=== PATIENT | male | born 1935 | race Caucasian/White ===

== ENCOUNTER 2017-10-04 10:40 | Emergency (ER) | payer MEDICARE, BC ==
[~2017-10-04] VITALS: Ht 179.1 cm; Wt 115.8 kg
[~2017-10-04 10:40] MED LIST: DICL50 PO; GABA300C3 PO; LISI2.5T3 PO; LORA-475 PO; OXYC-360 PO; RISP4TAB41 PO; SIMV20 PO; VENL75TA91 PO
[2017-10-04 10:49] VITALS: BP 156/84; PULSE 67; RESP 16; TEMP 98.6; O2SAT 95
[2017-10-04] MEDS ORDERED: PERC5TAB12 PO (11:07)
[2017-10-04] MEDS ORDERED: RISP4TAB2 PO (11:07)
[2017-10-04] MEDS ORDERED: ASPI-516 PO (11:07)
[2017-10-04] MEDS ORDERED: LORA2TAB7 PO (11:10)
[2017-10-04] MEDS ORDERED: GABA300C5 PO (11:10)
[2017-10-04] MEDS ORDERED: VENL75TA (11:10)
[2017-10-04] MEDS ORDERED: DOXY100C PO (11:17)
--- NOTE | 2017-10-04 11:18 | PD ---
HPI Chief Complaint: Skin Problem Time Seen by Provider: 10:55 Travel History International Travel<30 days: No Contact w/Intl Traveler<30days: No Traveled to known affect area: No History of Present Illness HPI Is 82-year-old male here with 2 skin tears to his left forearm. He reports he sustained a skin tear approximately one month ago while bandaging the area today sustained another skin tear when he was removing the bandage. He denies fever or chills. He reports the area has mild redness and small amount of yellowish drainage. Denies increased tenderness of the area. No fever or chills. Symptom severity is mild. PFSH Past Medical History Arthritis: Yes Blood Disorders: No Anxiety: Yes Depression: Yes Cancer: No Cardiovascular Problems: Yes (htn on meds) High Cholesterol: Yes Diminished Hearing: No Endocrine: No Gastrointestinal Disorders: No Genitourinary: No Hypertension: Yes Immune Disorder: No Implanted Vascular Access Dvce: Yes Musculoskeletal: Yes Neurologic: No Psychiatric: Yes Reproductive: No Respiratory: No Tetanus Vaccination: > 5 Years Influenza Vaccination: No Past Surgical History Joint Replacement: Yes (BILAT KNEE) Oral Surgery: Yes (T&A) Tonsillectomy: Yes Other Surgery: Yes (SPINE SURGERY) Social History Alcohol Use: No Tobacco Use: No Substance Use: No Allergies-Medications (Allergen,Severity, Reaction): Coded Allergies: No Known Allergies (Verified Adverse Reaction, Unknown, 10/04/17) Reported Meds & Prescriptions Reported Meds & Active Scripts Active Reported Percocet (Oxycodone-Acetaminophen) 5-325 mg Tab 1 Tab PO Q4H PRN Aspirin 81 Mg Chew 81 Mg PO WEEKLY Risperidone 4 Mg Tab 4 Mg PO HS Review of Systems Except as stated in HPI: all other systems reviewed are Neg General / Constitutional: No: Fever Physical Exam Narrative GENERAL: Alert and well-appearing 82-year-old male SKIN: Warm and dry. 2 skin tears to the dorsal aspect of the left forearm. One of the skin tears has mild amount of erythema. No induration or fluctuance HEAD: Normocephalic. EYES: No injection or drainage. NECK: Supple MUSCULOSKELETAL: No cyanosis, or edema. The skin noted above. She moves all joints freely. 2+ distal pulses. Data Data Last Documented VS Vital Signs Date Time Temp Pulse Resp B/P (MAP) Pulse Ox O2 Delivery O2 Flow Rate FiO2 10/04/17 10:49 98.6 67 16 156/84 (108) 95 MDM Medical Decision Making Medical Screen Exam Complete: Yes Emergency Medical Condition: Yes Differential Diagnosis Skin tear, abscess, cellulitis Narrative Course This is a and 82-year-old male with 2 skin tears to the left forearm. One of the skin tears has mild erythema and reported yellowish drainage. Patient will be treated with short dose of doxycycline. He was instructed to wash the area daily with soap and water and apply a nonstick dressing. Diagnosis Primary Impression: Skin tear of forearm without complication Qualified Codes: S51.812A - Laceration without foreign body of left forearm, initial encounter Additional Impression: Wound infection Referrals: Primary Care Physician Additional Instructions: Cleansed the area daily with soap and water. Apply a clean dry nonstick dressing Antibiotics as directed Scripts Doxycycline Hyclate (Doxycycline Hyclate) 100 Mg Cap 100 MG PO BID for Infection for 7 Days, #14 CAP 0 Refills Prov: Yuly Solorzano 10/04/17 Disposition: 01 DISCHARGE HOME Condition: Stable Yuly Solorzano Oct 04, 2017 11:18
== END 2017-10-04 11:31 | disposition home or self-care (01) ==
LOC: PHEFT 10:40
DX: S51.812A Laceration without foreign body of left forearm, initial encounter (principal); I10 Essential (primary) hypertension; E78.00 Pure hypercholesterolemia, unspecified; F41.9 Anxiety disorder, unspecified; F32.9 Major depressive disorder, single episode, unspecified; Z79.82 Long term (current) use of aspirin; Z79.899 Other long term (current) drug therapy
CPT/HCPCS: 99283

== ENCOUNTER 2018-07-23 09:26 | Inpatient (IN) ==
--- NOTE | 2018-07-23 09:54 | ED ---
HPI General Chief Complaint: Fall Stated Complaint: evac/fall Time Seen by Provider: 07/23/18 09:50 Source: patient Mode of arrival: EMS Limitations: no limitations History of Present Illness HPI Narrative: Per patient he lives at home with family, states that as he was walked in he tripped and fell forward landing on hands/form and knees, denies hitting his head, denies any loss of consciousness, denies any headache. per family at bedside he is on heavy narcotics from [place] for his chronic pain, and that is why he is falling so frequently. Patient has a past medical history of chronic pain, high cholesterol, anxiety depression, hypertension, bilateral knee replacements, spinal surgery. MD complaint: Reports fall Onset (ago): minute(s) Fall from: standing Fall witnessed: no Place fall occurred: home Loss of consciousness: none Prolonged down time: no Symptoms prior to fall: Reports none Context: Reports tripped/slipped Severity scale (1-10): 3 Quality: Reports aching Associated symptoms (after fall): Reports denies Related Data Home Medications Medication Instructions Recorded Confirmed lamotrigine 200 mg PO DAILY 03/26/18 07/23/18 lisinopril 5 mg PO DAILY 03/26/18 07/23/18 lorazepam 2 mg PO TID 03/26/18 07/23/18 oxycodone 5 mg PO BID 03/26/18 07/23/18 risperidone 2 mg PO DAILY 03/26/18 07/23/18 selenium sulfide 1 applic TOPICAL DAILY 03/26/18 07/23/18 simvastatin 40 mg PO HS 03/26/18 07/23/18 testosterone cypionate 200 mg IM Q2W 03/26/18 07/23/18 venlafaxine 75 mg PO TID 03/26/18 07/23/18 Previous Rx's Medication Instructions Recorded trazodone 100 mg PO HS PRN 7 Days #7 tab 07/26/18 Allergies Allergy/AdvReac Type Severity Reaction Status Date / Time No Known Allergies Allergy Verified 07/19/18 06:56 Review of Systems ROS: all other systems reviewed are negative PMFSH History History Provided By: Patient Medical History Medical History Anxiety (Acute) Chronic pain (Acute) Depression (Acute) HTN (hypertension) (Acute) High cholesterol (Acute) Surgical History Surgical History History of knee replacement (Acute) History of spinal surgery (Acute) Social History Social History Substance History: No History of Abuse Second Hand Smoke Exposure: No Smoking Status: Former smoker Tobacco Type: Cigarettes How Often Do You Have a Drink Containing Alcohol: Never Recent Travel in [facility] within the Last 8 Weeks: No Recent Out of Country Travel within the Last 8 Weeks: No Exam Narrative Exam Narrative: GENERAL: Well-nourished, well-developed patient in no apparent distress. SKIN: Warm and dry. Patient has abrasions to bilateral forearms proximally, without any actual lacerations, however the first layer abrasions bilaterally are noted. Patient also has contusions to bilateral knees HEAD: Atraumatic. Normocephalic. EYES: Pupils equal and round. No scleral icterus. No injection or drainage. ENT: No nasal bleeding or discharge. Mucous membranes pink and moist. NECK: Trachea midline. No JVD. CARDIOVASCULAR: Regular rate and rhythm. no rubs or gallops RESPIRATORY: No accessory muscle use. Clear to auscultation. Breath sounds equal bilaterally. GASTROINTESTINAL: Abdomen soft, non-tender, nondistended. No rebound or guarding MUSCULOSKELETAL: Extremities without clubbing, cyanosis, or edema. No obvious deformities. NEUROLOGICAL: Awake and alert. No obvious cranial nerve deficits. Motor grossly within normal limits. Five out of 5 muscle strength in the arms and legs. Normal speech. PSYCHIATRIC: Appropriate mood and affect; insight and judgment normal. Course Initial Documented Vital Signs Temperature 97.5 F L 07/23/18 09:42 Pulse Rate 88 07/23/18 09:42 Blood Pressure 147/63 H 07/23/18 09:42 Pulse Oximetry 97 07/23/18 09:42 Last Documented Vital Signs Temperature 98.2 F 07/26/18 08:00 Pulse Rate 65 07/26/18 08:00 Respiratory Rate 16 07/26/18 08:00 Blood Pressure 147/67 H 07/26/18 08:00 Pulse Oximetry 94 L 07/26/18 08:00 Medical Decision Making MDM Narrative Medical decision making narrative: Patient has a known history of chronic pain, [facility], according to the family whose plot he lives in the gas room, he is always "stoned" on his narcotic pain medications and he is not able to care for himself ambulate and this is why he has had so many multiple falls. Based on this information a stat physical therapy for placement will be ordered Diagnostic villarreal a UA on July 15 was negative for UTI Wrist x-rays were negative for any fractures Pelvis x-ray negative for any fracture or dislocation Chest x-ray negative for any rib fractures or pneumothorax Head CT negative for any intracranial hemorrhage or skull fracture Bilateral knee x-rays negative for any fracture or dislocations Elbow x-rays bilaterally negative for any fractures or dislocations Abrasions on bilateral forearms where clean irrigated, antibacterial ointment applied Telfa dressing applied an layer and then Kerlix roll used to hold it in place. Case management Medical Screen Exam Complete: Yes Emergency Medical Condition: Yes Lab Data Result diagrams: 07/25/18 05:15 07/25/18 05:15 Lab Results 07/23/18 07/23/18 07/23/18 Range/Units 14:10 14:10 15:33 CBC w Diff Auto diff final WBC 8.6 (4.0-11.0) th/mm3 RBC 3.94 L (4.50-5.90) mil/mm3 Hgb 12.5 L (13.0-17.0) gm/dL Hct 37.1 L (39.0-51.0) % MCV 94.2 (80.0-100.0) fL MCH 31.7 (27.0-34.0) pg MCHC 33.7 (32.0-36.0) % RDW 12.2 (11.6-17.2) % Plt Count 324 (150-450) th/mm3 MPV 6.7 L (7.0-11.0) fL Neut % (Auto) 82.9 H (16.0-70.0) % Lymph % (Auto) 7.1 L (9.0-44.0) % [place] % (Auto) 8.7 H (0.0-8.0) % Eos % (Auto) 0.3 (0.0-4.0) % Baso % (Auto) 1.0 (0.0-2.0) % Neut # (Auto) 7.2 (1.8-7.7) th/mm3 Lymph # (Auto) 0.6 L (1.0-4.8) th/mm3 [place] # (Auto) 0.7 (0.0-0.9) th/mm3 Eos # (Auto) 0.0 (0.0-0.4) th/mm3 Baso # (Auto) 0.1 (0.0-0.2) th/mm3 WBC Differential . Differential Comment . PT (9.8-11.6) sec INR Ratio Sodium (136-145) meq/L Potassium (3.5-5.1) meq/L Chloride (98-107) meq/L Carbon Dioxide (21.0-32.0) meq/L Anion Gap (5-15) meq/L BUN (7-18) mg/dL Creatinine (0.60-1.30) mg/dL Estimated GFR (>89) mL/min Random Glucose (74-106) mg/dL Calcium (8.5-10.1) mg/dL Magnesium (1.5-2.5) mg/dL Total Bilirubin (0.2-1.0) mg/dL AST (15-37) U/L ALT (12-78) U/L Alkaline Phosphatase (45-117) U/L Total Creatine Kinase (39-308) U/L CK-MB (CK-2) (0.5-3.6) ng/mL CK-MB (CK-2) % (0.0-4.0) % Troponin I (0.02-0.05) ng/mL B-Natriuretic Peptide (0-100) pg/mL Total Protein (6.4-8.2) g/dL Albumin (3.4-5.0) g/dL Urine Color Yellow (Yellw/Straw) Urine Clarity Clear (Clear) Urine pH 5.5 (5.0-8.5) Ur Specific [place] Greater/equal 1.030 (1.002-1.035) Urine Protein Trace (Neg-Trace) mg/dL Urine Glucose (UA) Negative (Negative) mg/dL Urine Ketones 80 or greater H (Negative) mg/dL Urine Occult Blood Trace (Negative) Urine Nitrate Negative (Negative) Urine Bilirubin Negative (Negative) Urine Ictotest Negative (Negative) Urine Urobilinogen 0.2 (Less than 2) mg/dL Ur Leukocyte Esterase Negative (Negative) Urine RBC 0-3 (0-3) /hpf Urine WBC 0-5 (0-5) /hpf Amorphous Sediment Rare H (None) /hpf Urine Bacteria Rare H (None) /hpf Urine Mucus Few H (Occasional) /lpf Micro UA Comment Culture not ind Ur Microscopic Review Microscopic reviewed Urine Culture Comments Culture not ind Urine Opiates Screen Neg (Neg) Ur Barbiturates Screen Neg (Neg) Ur Amphetamines Screen Neg (Neg) U Benzodiazepines Scrn Neg (Neg) Urine Cocaine Screen Neg (Neg) U Cannabinoids Screen Neg (Neg) Serum Alcohol (0-5) mg/dL 07/23/18 07/23/18 07/23/18 Range/Units 15:33 15:33 15:33 CBC w Diff WBC (4.0-11.0) th/mm3 RBC (4.50-5.90) mil/mm3 Hgb (13.0-17.0) gm/dL Hct (39.0-51.0) % MCV (80.0-100.0) fL MCH (27.0-34.0) pg MCHC (32.0-36.0) % RDW (11.6-17.2) % Plt Count (150-450) th/mm3 MPV (7.0-11.0) fL Neut % (Auto) (16.0-70.0) % Lymph % (Auto) (9.0-44.0) % [place] % (Auto) (0.0-8.0) % Eos % (Auto) (0.0-4.0) % Baso % (Auto) (0.0-2.0) % Neut # (Auto) (1.8-7.7) th/mm3 Lymph # (Auto) (1.0-4.8) th/mm3 [place] # (Auto) (0.0-0.9) th/mm3 Eos # (Auto) (0.0-0.4) th/mm3 Baso # (Auto) (0.0-0.2) th/mm3 WBC Differential Differential Comment PT (9.8-11.6) sec INR Ratio Sodium 138 (136-145) meq/L Potassium 4.3 (3.5-5.1) meq/L Chloride 103 (98-107) meq/L Carbon Dioxide 22.0 (21.0-32.0) meq/L Anion Gap 13 (5-15) meq/L BUN 19 H (7-18) mg/dL Creatinine 0.80 (0.60-1.30) mg/dL Estimated GFR Greater than 89 (>89) mL/min Random Glucose 77 (74-106) mg/dL Calcium 8.5 (8.5-10.1) mg/dL Magnesium (1.5-2.5) mg/dL Total Bilirubin 0.6 (0.2-1.0) mg/dL AST 45 H (15-37) U/L ALT 25 (12-78) U/L Alkaline Phosphatase 103 (45-117) U/L Total Creatine Kinase 2162 H (39-308) U/L CK-MB (CK-2) 9.3 H (0.5-3.6) ng/mL CK-MB (CK-2) % 0.4 (0.0-4.0) % Troponin I Less than 0.02 L (0.02-0.05) ng/mL B-Natriuretic Peptide 97 (0-100) pg/mL Total Protein 6.9 (6.4-8.2) g/dL Albumin 3.0 L (3.4-5.0) g/dL Urine Color (Yellw/Straw) Urine Clarity (Clear) Urine pH (5.0-8.5) Ur Specific [place] (1.002-1.035) Urine Protein (Neg-Trace) mg/dL Urine Glucose (UA) (Negative) mg/dL Urine Ketones (Negative) mg/dL Urine Occult Blood (Negative) Urine Nitrate (Negative) Urine Bilirubin (Negative) Urine Ictotest (Negative) Urine Urobilinogen (Less than 2) mg/dL Ur Leukocyte Esterase (Negative) Urine RBC (0-3) /hpf Urine WBC (0-5) /hpf Amorphous Sediment (None) /hpf Urine Bacteria (None) /hpf Urine Mucus (Occasional) /lpf Micro UA Comment Ur Microscopic Review Urine Culture Comments Urine Opiates Screen (Neg) Ur Barbiturates Screen (Neg) Ur Amphetamines Screen (Neg) U Benzodiazepines Scrn (Neg) Urine Cocaine Screen (Neg) U Cannabinoids Screen (Neg) Serum Alcohol Less than 3 (0-5) mg/dL 11/07/24/18 07/24/18 Range/Units 05:45 05:45 05:45 CBC w Diff Auto diff final WBC 5.3 (4.0-11.0) th/mm3 RBC 3.72 L (4.50-5.90) mil/mm3 Hgb 11.7 L (13.0-17.0) gm/dL Hct 35.0 L (39.0-51.0) % MCV 94.1 (80.0-100.0) fL MCH 31.5 (27.0-34.0) pg MCHC 33.5 (32.0-36.0) % RDW 12.0 (11.6-17.2) % Plt Count 321 (150-450) th/mm3 MPV 7.2 (7.0-11.0) fL Neut % (Auto) 76.9 H (16.0-70.0) % Lymph % (Auto) 12.0 (9.0-44.0) % [place] % (Auto) 9.1 H (0.0-8.0) % Eos % (Auto) 1.7 (0.0-4.0) % Baso % (Auto) 0.3 (0.0-2.0) % Neut # (Auto) 4.1 (1.8-7.7) th/mm3 Lymph # (Auto) 0.6 L (1.0-4.8) th/mm3 [place] # (Auto) 0.5 (0.0-0.9) th/mm3 Eos # (Auto) 0.1 (0.0-0.4) th/mm3 Baso # (Auto) 0.0 (0.0-0.2) th/mm3 WBC Differential . Differential Comment . PT 11.0 (9.8-11.6) sec INR 1.1 Ratio Sodium 140 (136-145) meq/L Potassium 4.0 (3.5-5.1) meq/L Chloride 106 (98-107) meq/L Carbon Dioxide 24.9 (21.0-32.0) meq/L Anion Gap 9 (5-15) meq/L BUN 13 (7-18) mg/dL Creatinine 0.74 (0.60-1.30) mg/dL Estimated GFR Greater than 89 (>89) mL/min Random Glucose 74 (74-106) mg/dL Calcium 8.2 L (8.5-10.1) mg/dL Magnesium (1.5-2.5) mg/dL Total Bilirubin (0.2-1.0) mg/dL AST (15-37) U/L ALT (12-78) U/L Alkaline Phosphatase (45-117) U/L Total Creatine Kinase 2153 H (39-308) U/L CK-MB (CK-2) 8.1 H (0.5-3.6) ng/mL CK-MB (CK-2) % 0.4 (0.0-4.0) % Troponin I (0.02-0.05) ng/mL B-Natriuretic Peptide (0-100) pg/mL Total Protein (6.4-8.2) g/dL Albumin (3.4-5.0) g/dL Urine Color (Yellw/Straw) Urine Clarity (Clear) Urine pH (5.0-8.5) Ur Specific [place] (1.002-1.035) Urine Protein (Neg-Trace) mg/dL Urine Glucose (UA) (Negative) mg/dL Urine Ketones (Negative) mg/dL Urine Occult Blood (Negative) Urine Nitrate (Negative) Urine Bilirubin (Negative) Urine Ictotest (Negative) Urine Urobilinogen (Less than 2) mg/dL Ur Leukocyte Esterase (Negative) Urine RBC (0-3) /hpf Urine WBC (0-5) /hpf Amorphous Sediment (None) /hpf Urine Bacteria (None) /hpf Urine Mucus (Occasional) /lpf Micro UA Comment Ur Microscopic Review Urine Culture Comments Urine Opiates Screen (Neg) Ur Barbiturates Screen (Neg) Ur Amphetamines Screen (Neg) U Benzodiazepines Scrn (Neg) Urine Cocaine Screen (Neg) U Cannabinoids Screen (Neg) Serum Alcohol (0-5) mg/dL 07/25/18 07/25/18 07/25/18 Range/Units 05:15 05:15 05:15 CBC w Diff WBC 5.0 (4.0-11.0) th/mm3 RBC 3.59 L (4.50-5.90) mil/mm3 Hgb 11.0 L (13.0-17.0) gm/dL Hct 34.6 L (39.0-51.0) % MCV 96.4 (80.0-100.0) fL MCH 30.7 (27.0-34.0) pg MCHC 31.9 L (32.0-36.0) % RDW 12.7 (11.6-17.2) % Plt Count 284 (150-450) th/mm3 MPV 7.4 (7.0-11.0) fL Neut % (Auto) (16.0-70.0) % Lymph % (Auto) (9.0-44.0) % [place] % (Auto) (0.0-8.0) % Eos % (Auto) (0.0-4.0) % Baso % (Auto) (0.0-2.0) % Neut # (Auto) (1.8-7.7) th/mm3 Lymph # (Auto) (1.0-4.8) th/mm3 [place] # (Auto) (0.0-0.9) th/mm3 Eos # (Auto) (0.0-0.4) th/mm3 Baso # (Auto) (0.0-0.2) th/mm3 WBC Differential Differential Comment PT (9.8-11.6) sec INR Ratio Sodium 142 (136-145) meq/L Potassium 3.7 (3.5-5.1) meq/L Chloride 108 H (98-107) meq/L Carbon Dioxide 25.2 (21.0-32.0) meq/L Anion Gap 9 (5-15) meq/L BUN 10 (7-18) mg/dL Creatinine 0.58 L (0.60-1.30) mg/dL Estimated GFR Greater than 89 (>89) mL/min Random Glucose 76 (74-106) mg/dL Calcium 8.0 L (8.5-10.1) mg/dL Magnesium 2.2 (1.5-2.5) mg/dL Total Bilirubin (0.2-1.0) mg/dL AST (15-37) U/L ALT (12-78) U/L Alkaline Phosphatase (45-117) U/L Total Creatine Kinase 981 H (39-308) U/L CK-MB (CK-2) 3.9 H (0.5-3.6) ng/mL CK-MB (CK-2) % 0.4 (0.0-4.0) % Troponin I (0.02-0.05) ng/mL B-Natriuretic Peptide (0-100) pg/mL Total Protein (6.4-8.2) g/dL Albumin (3.4-5.0) g/dL Urine Color (Yellw/Straw) Urine Clarity (Clear) Urine pH (5.0-8.5) Ur Specific [place] (1.002-1.035) Urine Protein (Neg-Trace) mg/dL Urine Glucose (UA) (Negative) mg/dL Urine Ketones (Negative) mg/dL Urine Occult Blood (Negative) Urine Nitrate (Negative) Urine Bilirubin (Negative) Urine Ictotest (Negative) Urine Urobilinogen (Less than 2) mg/dL Ur Leukocyte Esterase (Negative) Urine RBC (0-3) /hpf Urine WBC (0-5) /hpf Amorphous Sediment (None) /hpf Urine Bacteria (None) /hpf Urine Mucus (Occasional) /lpf Micro UA Comment Ur Microscopic Review Urine Culture Comments Urine Opiates Screen (Neg) Ur Barbiturates Screen (Neg) Ur Amphetamines Screen (Neg) U Benzodiazepines Scrn (Neg) Urine Cocaine Screen (Neg) U Cannabinoids Screen (Neg) Serum Alcohol (0-5) mg/dL 07/26/18 Range/Units 07:36 CBC w Diff WBC (4.0-11.0) th/mm3 RBC (4.50-5.90) mil/mm3 Hgb (13.0-17.0) gm/dL Hct (39.0-51.0) % MCV (80.0-100.0) fL MCH (27.0-34.0) pg MCHC (32.0-36.0) % RDW (11.6-17.2) % Plt Count (150-450) th/mm3 MPV (7.0-11.0) fL Neut % (Auto) (16.0-70.0) % Lymph % (Auto) (9.0-44.0) % [place] % (Auto) (0.0-8.0) % Eos % (Auto) (0.0-4.0) % Baso % (Auto) (0.0-2.0) % Neut # (Auto) (1.8-7.7) th/mm3 Lymph # (Auto) (1.0-4.8) th/mm3 [place] # (Auto) (0.0-0.9) th/mm3 Eos # (Auto) (0.0-0.4) th/mm3 Baso # (Auto) (0.0-0.2) th/mm3 WBC Differential Differential Comment PT (9.8-11.6) sec INR Ratio Sodium (136-145) meq/L Potassium (3.5-5.1) meq/L Chloride (98-107) meq/L Carbon Dioxide (21.0-32.0) meq/L Anion Gap (5-15) meq/L BUN (7-18) mg/dL Creatinine (0.60-1.30) mg/dL Estimated GFR (>89) mL/min Random Glucose (74-106) mg/dL Calcium (8.5-10.1) mg/dL Magnesium (1.5-2.5) mg/dL Total Bilirubin (0.2-1.0) mg/dL AST (15-37) U/L ALT (12-78) U/L Alkaline Phosphatase (45-117) U/L Total Creatine Kinase 613 H (39-308) U/L CK-MB (CK-2) 3.0 (0.5-3.6) ng/mL CK-MB (CK-2) % 0.5 (0.0-4.0) % Troponin I (0.02-0.05) ng/mL B-Natriuretic Peptide (0-100) pg/mL Total Protein (6.4-8.2) g/dL Albumin (3.4-5.0) g/dL Urine Color (Yellw/Straw) Urine Clarity (Clear) Urine pH (5.0-8.5) Ur Specific [place] (1.002-1.035) Urine Protein (Neg-Trace) mg/dL Urine Glucose (UA) (Negative) mg/dL Urine Ketones (Negative) mg/dL Urine Occult Blood (Negative) Urine Nitrate (Negative) Urine Bilirubin (Negative) Urine Ictotest (Negative) Urine Urobilinogen (Less than 2) mg/dL Ur Leukocyte Esterase (Negative) Urine RBC (0-3) /hpf Urine WBC (0-5) /hpf Amorphous Sediment (None) /hpf Urine Bacteria (None) /hpf Urine Mucus (Occasional) /lpf Micro UA Comment Ur Microscopic Review Urine Culture Comments Urine Opiates Screen (Neg) Ur Barbiturates Screen (Neg) Ur Amphetamines Screen (Neg) U Benzodiazepines Scrn (Neg) Urine Cocaine Screen (Neg) U Cannabinoids Screen (Neg) Serum Alcohol (0-5) mg/dL Imaging Data Radiologist's impression: Chest X-Ray 07/23/18 09:54 CONCLUSION: No acute disease Elbow X-Ray 07/23/18 09:54 CONCLUSION: No evidence of recent bony injury. Elbow X-Ray 07/23/18 09:54 CONCLUSION: No acute fracture of the left elbow identified. Head CT 07/23/18 09:54 CONCLUSION: No acute intracranial injury . Knee X-Ray 07/23/18 09:54 CONCLUSION: No acute bony injury Knee X-Ray 07/23/18 09:54 CONCLUSION: Post arthroplasty. No acute fracture. Pelvis X-Ray 07/23/18 09:54 CONCLUSION: No acute bony findings Wrist X-Ray 07/23/18 09:54 CONCLUSION: 1. Healing fracture at the base of the fifth metacarpal. There is exuberant bony callus and degenerative changes. 2. Advanced arthritic changes in the carpometacarpal joint at the base of the thumb. 3. No acute abnormality seen Discharge Plan Discharge Disposition Patient Disposition: 03 Discharge to SNF Discharge Condition Condition: Good Discharge Order Discharge Orders: Discharge Order (Routine); Ordered 07/26/18 Ordered By: Sylvain Carreon Discharge Details Anticipated Discharge Date: 07/26/18 Physicians Team ED Provider: Christian Adrian Primary Care Provider: Shara Adler Attending Provider: Sylvain Carreon Other Providers: Bishnu Pop,Agency Status ED Status: Left Department Discharge Information Discharge Date/Time: 07/23/18 17:29 Discharge Location: [facility]
--- NOTE | 2018-07-23 10:54 | CT ---
EXAM DATE: 07/23/2018 10:46 AM EST AGE/SEX: 83 years / Male INDICATIONS: Trauma. Fall. CLINICAL DATA: This is the patient's initial encounter. Patient reports that signs and symptoms have been present for 1 day and indicates a pain score of 0/10. MEDICAL/SURGICAL HISTORY: Hypertension. None. RADIATION DOSE: 60.21 CTDI (mGy) COMPARISON: [facility], CT HEAD W/O CONTRAST, 03/26/2018. . TECHNIQUE: CT of the head without contrast. Using automated exposure control and adjustment of the mA and/or kV according to patient size, radiation dose was kept as low as reasonably achievable to ob tain optimal diagnostic quality images. DICOM format image data is available electronically for revi ew and comparison. FINDINGS: Cerebrum: The ventricles are normal for age. No evidence of midline shift, mass lesion, hemorrhage or acute infarction. No extraaxial fluid collections are seen. Posterior Fossa: The cerebellum and brainstem are intact. The 4th ventricle is midline. The cerebe llopontine angle is unremarkable. Extracranial: The visualized portion of the orbits is intact. Near confluent opacification of the ri ght maxillary sinus is again noted. Skull: The calvaria is intact. No evidence of skull fracture. CONCLUSION: No acute intracranial injury . Electronically signed by: Clay Singletary MD 07/23/2018 10:52 AM EST
--- NOTE | 2018-07-23 11:03 | XR ---
EXAM DATE: 07/23/2018 10:35 AM EST AGE/SEX: 83 years / Male INDICATIONS: Chest discomfort; fall. CLINICAL DATA: This is the patient's initial encounter. Patient reports that signs and symptoms have been present for 1 day and indicates a pain score of 2/10. MEDICAL/SURGICAL HISTORY: Hypertension. Non-responsive. COMPARISON: [facility], RIBS LEFT MIN 3V W EXP CHEST, 07/15/2018. . FINDINGS: Stable oval calcific density overlying the lateral right upper lobe region. Minimal calcification viviana ng the diaphragmatic surface on the right. No evidence of infiltrate or effusion. Cardiac contours ar e unchanged. CONCLUSION: No acute disease Electronically signed by: Clay Singletary MD 07/23/2018 11:01 AM EST
--- NOTE | 2018-07-23 11:09 | XR ---
EXAM DATE: 07/23/2018 10:40 AM EST AGE/SEX: 83 years / Male INDICATIONS: Left knee pain; fall today. CLINICAL DATA: This is the patient's initial encounter. Patient reports that signs and symptoms have been present for 1 day and indicates a pain score of 5/10. MEDICAL/SURGICAL HISTORY: None. . Bilateral total knee replacement. COMPARISON: [facility], XR KNEE COMPLETE, LEFT, 09/09/2017. . FINDINGS: Total knee arthroplasty present. Hardware is intact. Alignment is anatomic. There is no evidence of f racture or joint effusion. CONCLUSION: No acute bony injury Electronically signed by: Clay Singletary MD 07/23/2018 11:08 AM EST
--- NOTE | 2018-07-23 11:09 | XR ---
EXAM DATE: 07/23/2018 10:38 AM EST AGE/SEX: 83 years / Male INDICATIONS: Right elbow laceration and pain. Fall today. CLINICAL DATA: This is the patient's initial encounter. Patient reports that signs and symptoms have been present for 1 day and indicates a pain score of 4/10. MEDICAL/SURGICAL HISTORY: None. None. COMPARISON: No prior exams available for comparison. FINDINGS: Bony structures are intact and in normal alignment. Joints are intact without dislocation or signifi cant arthropathy. Osseous density is normal. Soft tissues are unremarkable. No radiopaque foreign bodies seen. CONCLUSION: No evidence of recent bony injury. Electronically signed by: Clay Singletary MD 07/23/2018 11:07 AM EST
--- NOTE | 2018-07-23 11:10 | XR ---
EXAM DATE: 07/23/2018 10:41 AM EST AGE/SEX: 83 years / Male INDICATIONS: Right knee pain; fall today. CLINICAL DATA: This is the patient's initial encounter. Patient reports that signs and symptoms have been present for 1 day and indicates a pain score of 5/10. MEDICAL/SURGICAL HISTORY: None. None. COMPARISON: No prior exams available for comparison. FINDINGS: The patient is post right knee arthroplasty. Orthopedic hardware is in excellent position. There is n o evidence of failure complication. No acute fractures seen. Note is made of atherosclerotic plaquing within the distal superficial femoral and popliteal arteries . CONCLUSION: Post arthroplasty. No acute fracture. Electronically signed by: Remberto Garcias MD 07/23/2018 11:09 AM EST
--- NOTE | 2018-07-23 11:11 | XR ---
EXAM DATE: 07/23/2018 10:44 AM EST AGE/SEX: 83 years / Male INDICATIONS: Left wrist pain; fall today. CLINICAL DATA: This is the patient's initial encounter. Patient reports that signs and symptoms have been present for 1 day and indicates a pain score of 4/10. MEDICAL/SURGICAL HISTORY: None. None. COMPARISON: [facility]PO, HAND COMPLETE LEFT MIN 3V, 03/26/2018. . FINDINGS: The examination demonstrates a healing fracture involving the base of the fifth metacarpal. There are secondary degenerative changes. Note is also made of advanced arthritic changes in the carpal/metacarpal joint at the base of the reese mb. The remainder of the carpus appears intact. No acute fracture is seen. The distal radius and ulna are intact. CONCLUSION: 1. Healing fracture at the base of the fifth metacarpal. There is exuberant bony callus and degenera tive changes. 2. Advanced arthritic changes in the carpometacarpal joint at the base of the thumb. 3. No acute abnormality seen Electronically signed by: Remberto Garcias MD 07/23/2018 11:10 AM EST
--- NOTE | 2018-07-23 11:12 | XR ---
EXAM DATE: 07/23/2018 10:37 AM EST AGE/SEX: 83 years / Male INDICATIONS: Left elbow laceration and pain. Fall today. CLINICAL DATA: This is the patient's initial encounter. Patient reports that signs and symptoms have been present for 1 day and indicates a pain score of 4/10. MEDICAL/SURGICAL HISTORY: None. None. COMPARISON: [facility], ELBOW COMPLETE LEFT 4V, 03/26/2018. . FINDINGS: Bony structures are intact and in normal alignment. Joints are intact without dislocation or signifi cant arthropathy. Osseous density is normal. Soft tissues are unremarkable. No radiopaque foreign bodies seen. CONCLUSION: No acute fracture of the left elbow identified. Electronically signed by: Remberto Garcias MD 07/23/2018 11:11 AM EST
--- NOTE | 2018-07-23 11:19 | XR ---
EXAM DATE: 07/23/2018 10:42 AM EST AGE/SEX: 83 years / Male INDICATIONS: Pelvic pain. CLINICAL DATA: This is the patient's initial encounter. Patient reports that signs and symptoms have been present for 1 day and indicates a pain score of 5/10. MEDICAL/SURGICAL HISTORY: None. None. COMPARISON: No prior exams available for comparison. FINDINGS: Mild degenerative changes in the hips. No evidence of fracture, dislocation or bony destruction. Phle boliths in the left pelvis. CONCLUSION: No acute bony findings Electronically signed by: Clay Singletary MD 07/23/2018 11:18 AM EST
[2018-07-23 15:00] LABS: Clarity,Urine Clear (Clear); Color,Urine Yellow (Yellw/Straw); Glucose,Urine (UA) Negative (Negative); Leukocyte Esterase,Urine Negative (Negative); Nitrite,Urine Negative (Negative); PH,Urine 5.5 (5.0-8.5); Specific Gravity,Urine Greater/Equal 1.030 (1.002-1.035); Urobilinogen,Urine 0.2 mg/dL (Less than 2)
[2018-07-23 15:04] LABS: Bilirubin,Urine Negative (Negative); Ictotest,Urine Negative (Negative)
[2018-07-23 15:09] LABS: RBC,Urine 0-3 /hpf (0-3)
[2018-07-23 15:10] LABS: Amorphous Sediment,Urine Rare /hpf; Bacteria,Urine Rare /hpf; Mucus,Urine Few /lpf (Occasional); WBC,Urine 0-5 /hpf (0-5)
[2018-07-23 15:18] LABS: Amphetamine Screen,Urine Neg (Neg); Barbiturate Screen,Urine Neg (Neg)
[2018-07-23 15:20] LABS: Cannabinoid Screen,Urine Neg (Neg)
[2018-07-23 15:22] LABS: Cocaine Screen,Urine Neg (Neg)
[2018-07-23 15:41] LABS: Baso # (Auto) 0.1 th/mm3 (0.0-0.2); Eos % (Auto) 0.3 % (0.0-4.0); Hematocrit 37.1 % (39.0-51.0); Hemoglobin 12.5 gm/dL (13.0-17.0); Lymph # (Auto) 0.6 th/mm3 (1.0-4.8); Lymph % (Auto) 7.1 % (9.0-44.0); Mean Corpuscular HGB Conc 33.7 % (32.0-36.0); Mean Corpuscular Hemoglobin 31.7 pg (27.0-34.0); Mean Corpuscular Volume 94.2 fL (80.0-100.0); Mean Platelet Volume 6.7 fL (7.0-11.0); Mono # (Auto) 0.7 th/mm3 (0.0-0.9); Mono % (Auto) 8.7 % (0.0-8.0); Neut # (Auto) 7.2 th/mm3 (1.8-7.7); Neut % (Auto) 82.9 % (16.0-70.0); Platelet Count 324 th/mm3 (150-450); Red Blood Count 3.94 mil/mm3 (4.50-5.90); Red Cell Distribution Width 12.2 % (11.6-17.2); White Blood Count 8.6 th/mm3 (4.0-11.0)
[2018-07-23 15:43] LABS: Opiate Screen,Urine Neg (Neg)
[2018-07-23 15:49] LABS: Chloride 103 meq/L (98-107); Potassium 4.3 meq/L (3.5-5.1); Sodium 138 meq/L (136-145)
[2018-07-23 15:52] LABS: Calcium 8.5 mg/dL (8.5-10.1)
[2018-07-23 15:53] LABS: Anion Gap 13 meq/L (5-15); Blood Urea Nitrogen 19 mg/dL (7-18); Glucose,Random 77 mg/dL (74-106)
[2018-07-23 15:56] LABS: Alanine Aminotransferase 25 U/L (12-78); Aspartate Aminotransferase 45 U/L (15-37); Glomerular Filtration Rate Greater Than 89 mL/min (>89)
[2018-07-23 15:57] LABS: Total Protein 6.9 g/dL (6.4-8.2)
[2018-07-23 15:59] LABS: Alkaline Phosphatase 103 U/L (45-117)
[2018-07-23] MEDS ORDERED: Acetaminophen 325 MG Tablet PO PRN (16:30)
[2018-07-23] MEDS ORDERED: Bisacodyl 10 MG Supp RECTAL PRN (16:30)
[2018-07-23 16:33] LABS: CKMB Percent 0.4 % (0.0-4.0); Creatine Kinase MB 9.3 ng/mL (0.5-3.6)
--- NOTE | 2018-07-23 17:00 | P.HPIM ---
History of Present Illness Primary Care Physician: Shara Adler MD Patient is a 83 year old male and [place] patient who presents to the ED following mechanical fall at home. history provided by son pradeep and tailer in of [address] [employer]. As per family patient has been having multiple falls over a period of months and fell 1 day prior to admission where the dire dept was called to help him up. On day of presentation patient found on floor face down by family ater another presumed mechanical fall. patient denied prodromal symptoms such as chest pain, palpitations, sob, dizziness. Patient reports that he had bilateral knee replacements and is supposed to use a walker but family says he doesnt use it and when he does isnt using it correctly. Family also brought up concerns regarding pain medication use. Patient has chronic pain from the knee and uses oxycodone but its prescribed 5mg BID but he uses it more than that they claim. Patient also uses risperdal, ativan and anti- depressant medication which family believes patient may be taking more than prescribed. Patient denies this claim. Family reports that patient follows with the [place] [phone] ( Dr. Flores [facility]) and Also a MD in [place] ( Dr. Rubio). In ED patient received imaging which returned unremarkable. Patient was small lacerations over her elbows and arms which are dressed and stable. Lab work reviewed and no significant abnormality. Hemoglobin stable. CT head negative for intracranial pathology. Diagnosis (1) Fall (on) (from) other stairs and steps, initial encounter: (2) Substance addiction: (3) Chronic knee pain after total replacement of both knee joints: (4) Hypertension: (5) High cholesterol: (6) Depression: (7) Anxiety: Review of Systems Review of Systems: all other systems reviewed are negative [facility] Medical History Medical History Anxiety (Acute) Chronic pain (Acute) Depression (Acute) HTN (hypertension) (Acute) High cholesterol (Acute) Surgical History Surgical History History of knee replacement (Acute) History of spinal surgery (Acute) Social History Social History Substance History: No History of Abuse Second Hand Smoke Exposure: No Smoking Status: Former smoker Tobacco Type: Cigarettes How Often Do You Have a Drink Containing Alcohol: Never Recent Travel in [place] within the Last 8 Weeks: No Recent Out of Country Travel within the Last 8 Weeks: No Immunization History Tetanus Immunization: <5 Years Medications and Allergies Allergies Allergy/AdvReac Type Severity Reaction Status Date / Time No Known Allergies Allergy Verified 07/19/18 06:56 Home Medications Medication Instructions Recorded Confirmed Type lamotrigine 200 mg PO DAILY 03/26/18 07/23/18 History lisinopril 5 mg PO DAILY 03/26/18 07/23/18 History lorazepam 2 mg PO TID 03/26/18 07/23/18 History oxycodone 5 mg PO BID 03/26/18 07/23/18 History risperidone 2 mg PO DAILY 03/26/18 07/23/18 History risperidone 4 mg PO HS 03/26/18 07/23/18 History selenium sulfide 1 applic TOPICAL DAILY 03/26/18 07/23/18 History simvastatin 40 mg PO HS 03/26/18 07/23/18 History testosterone cypionate 200 mg IM Q2W 03/26/18 07/23/18 History venlafaxine 75 mg PO TID 03/26/18 07/23/18 History Active Medications: Active Medications Acetaminophen (Tylenol) 650 mg PO Q4H PRN PRN Reason: Temp > 100.4 Al Hydroxide/Mg Hydroxide (Milk Of Magnashley Liq) 30 ml PO Q12H PRN PRN Reason: Mild Constipation Bisacodyl (Dulcolax Supp) 10 mg RECTAL DAILY PRN PRN Reason: SEVERE CONSITIPATION Enoxaparin Sodium (Lovenox Inj) 40 mg SQ Q24H [facility] Sodium Chloride (Ns Inj) 1,000 mls @ 100 mls/hr IV.CONT .Q10H [facility] Ondansetron HCl (Zofran Inj) 4 mg IV.PUSH Q6H PRN PRN Reason: NAUSEA OR VOMITING Senna/Docusate Sodium (Gia-Colace) 1 tab PO BID [facility] Sennosides (Senokot) 17.2 mg PO Q12H PRN PRN Reason: Moderate Constipation Sodium Chloride (Ns Flush) 2 ml IV.FLUSH PRN PRN PRN Reason: FLUSH AFTER USING IV ACCESS Sodium Chloride (Ns Flush) 2 ml IV.FLUSH BID [facility] Physical Exam Vital signs: Last Vital Signs Temp 97.5 F L 07/23/18 09:42 Pulse 86 07/23/18 14:04 Resp 17 07/23/18 14:04 BP 131/64 07/23/18 14:04 Pulse Ox 94 L 07/23/18 14:04 Intake & Output 07/21/18 07/22/18 07/23/18 07/24/18 06:59 06:59 06:59 06:59 Weight 113 kg General: No acute distress, conversational HEENT: Facial laceration over anterior nares. EOMI, PERRLA. Cardiovascular: Systolic murmur noted. Respiratory: Clear to auscultation Gastrointestinal: Soft, nontender, nondistended, no guarding or rebound. No bruising noted in flank Extremity: No calf tenderness, no edema Neurology: Sensation intact upper and lower extremity. Power 5/5 throughout. No facial droop. No slurred speech. Patient AAO x3 Results Labs CBC & Chem 7: 07/23/18 15:33 07/23/18 15:33 Imaging Impressions Chest X-Ray 07/23/18 09:54 CONCLUSION: No acute disease Elbow X-Ray 07/23/18 09:54 CONCLUSION: No evidence of recent bony injury. Elbow X-Ray 07/23/18 09:54 CONCLUSION: No acute fracture of the left elbow identified. Head CT 07/23/18 09:54 CONCLUSION: No acute intracranial injury . Knee X-Ray 07/23/18 09:54 CONCLUSION: No acute bony injury Knee X-Ray 07/23/18 09:54 CONCLUSION: Post arthroplasty. No acute fracture. Pelvis X-Ray 07/23/18 09:54 CONCLUSION: No acute bony findings Wrist X-Ray 07/23/18 09:54 CONCLUSION: 1. Healing fracture at the base of the fifth metacarpal. There is exuberant bony callus and degenerative changes. 2. Advanced arthritic changes in the carpometacarpal joint at the base of the thumb. 3. No acute abnormality seen Caprini VTE Risk Assessment Caprini VTE Risk Assessment: No/Low Risk (score <= 1) Caprini Risk Assessment Model: Point Value = 1 Point Value = 2 Point Value = 3 Point Value = 5 Age 41-60 Minor surgery BMI > 25 kg/m2 Swollen legs Varicose veins or History of unexplained or recurrent spontaneous Oral contraceptives or hormone replacement Sepsis (< 1 month) Serious lung disease, including pneumonia (< 1 month) Abnormal pulmonary function Acute myocardial infarction Congestive heart failure (< 1 month) History of inflammatory bowel disease Medical patient at bed rest Age 61-74 Arthroscopic surgery Major open surgery (> 45 min) Laparoscopic surgery (> 45 min) Malignancy Confined to bed (> 72 hours) Immobilizing plaster cast Central venous access Age >= 75 History of VTE Family history of VTE Factor V Leiden Prothrombin [id number] Lupus anticoagulant Anticardiolipin antibodies Elevated serum homocysteine Heparin-induced thrombocytopenia Other congenital or acquired thrombophilia Stroke (< 1 month) Elective arthroplasty Hip, pelvis, or leg fracture Acute spinal cord injury (< 1 month) Prophylaxis Regimen: Total Risk Factor Score Risk Level Prophylaxis Regimen 0-1 Low Early ambulation 2 Moderate Order ONE of the following: *Sequential Compression Device (SCD) *Heparin 5000 units SQ BID 3-4 Higher Order ONE of the following medications: *Heparin 5000 units SQ TID *Enoxaparin/Lovenox 40 mg SQ daily (WT < 150 kg, CrCl > 30 mL/min) *Enoxaparin/Lovenox 30 mg SQ daily (WT < 150 kg, CrCl > 10-29 mL/min) *Enoxaparin/Lovenox 30 mg SQ BID (WT < 150 kg, CrCl > 30 mL/min) AND/OR *Sequential Compression Device (SCD) 5 or more Highest Order ONE of the following medications: *Heparin 5000 units SQ TID (Preferred with Epidurals) *Enoxaparin/Lovenox 40 mg SQ daily (WT < 150 kg, CrCl > 30 mL/min) *Enoxaparin/Lovenox 30 mg SQ daily (WT < 150 kg, CrCl > 10-29 mL/min) *Enoxaparin/Lovenox 30 mg SQ BID (WT < 150 kg, CrCl > 30 mL/min) AND *Sequential Compression Device (SCD) Assessment and Plan (1) Fall (on) (from) other stairs and steps, initial encounter: Code(s): W10.8XXA - Fall (on) (from) other stairs and steps, initial encounter Status: Acute (2) Substance addiction: Code(s): F19.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, uncomplicated Status: Acute (3) Chronic knee pain after total replacement of both knee joints: Code(s): M25.561 - Pain in right knee; M25.562 - Pain in left knee; G89.29 - Other chronic pain; Z96.653 - Presence of artificial knee joint, bilateral Status: Acute (4) Hypertension: Code(s): I10 - Essential (primary) hypertension Status: Acute (5) High cholesterol: Code(s): E78.00 - Pure hypercholesterolemia, unspecified Status: Acute (6) Depression: Code(s): F32.9 - Major depressive disorder, single episode, unspecified Status: Acute (7) Anxiety: Code(s): F41.9 - Anxiety disorder, unspecified Status: Acute Plan Muscular skeletal/orthopedic: Fall, history of bilateral knee replacement Extensive imaging obtained. No evidence of acute fracture at this time. Physical therapy evaluation -Ibuprofen 600 mg twice daily as needed for pain, oxycodone 5 mg twice daily as needed breakthrough Psychiatry: Substance misuse of opioids, anxiety, depression, chronic pain, mood disorder Family concerned that patient has been misusing his prescription for opioid medication which is resulting in oversedation and falls. Explained to patient that medication compliance is la to recovery and decrease auscultations. Will begin process of slowly titrating down medications with plan outpatient follow-up with primary medical doctor at [facility] Continue venlafaxine 75 mg p.o. 3 times daily Continue lamotrigine 200 mg twice daily Continue Ativan 2 mg twice daily for anxiety - Trazadone 100mg qHS due to low risk for abuse in patients with substance abuse concerns. - medication confirmation recieved from [facility] outpatient. Collected - risperdal 2mg qD and HOLDING risperdal 4mgQHS written for sleep disturbance as per patient/family. use trazadone. Nephrology: Rhabdomyolysis Continue aggressive IV fluid hydration A.m. CPK level Cardiology: Hypertension, hyperlipidemia Continue lisinopril 5 mg daily 2D echo to evaluate for valvular pathology leading to fall Telemetry monitoring CODE STATUS: Full code DVT prophylaxis Diet: Cardiac Disposition: Medical service Plan discussed in part with patient family at bedside.
[2018-07-23] MEDS: Sod Chloride 0.9% Inj 1,000 ML IV.CONT SCH (18:00)
[2018-07-23] MEDS: Enoxaparin Inj 40 MG/0.4 ML Syringe SQ SCH (18:08)
[2018-07-23] MEDS ORDERED: Lisinopril 5 MG Tablet PO SCH (19:00)
[2018-07-23] MEDS: Senna/Docusate Sodium 8.6/50 MG Tablet PO SCH (22:12)
[2018-07-23] MEDS: traZODone 100 MG Tablet PO PRN (22:12)
[2018-07-23] MEDS: lamoTRIgine 100 MG Tablet PO SCH (22:12)
[2018-07-23] MEDS: Lisinopril 5 MG Tablet PO SCH (22:20)
[2018-07-24] MEDS: Sod Chloride 0.9% Inj 1,000 ML IV.CONT SCH ×3 (06:10→22:24)
[2018-07-24 06:52] LABS: Baso % (Auto) 0.3 % (0.0-2.0); Eos # (Auto) 0.1 th/mm3 (0.0-0.4); Eos % (Auto) 1.7 % (0.0-4.0); Hemoglobin 11.7 gm/dL (13.0-17.0); Lymph # (Auto) 0.6 th/mm3 (1.0-4.8); Mean Corpuscular HGB Conc 33.5 % (32.0-36.0); Mean Corpuscular Hemoglobin 31.5 pg (27.0-34.0); Mean Corpuscular Volume 94.1 fL (80.0-100.0); Mean Platelet Volume 7.2 fL (7.0-11.0); Mono # (Auto) 0.5 th/mm3 (0.0-0.9); Mono % (Auto) 9.1 % (0.0-8.0); Neut # (Auto) 4.1 th/mm3 (1.8-7.7); Neut % (Auto) 76.9 % (16.0-70.0); Platelet Count 321 th/mm3 (150-450); Red Blood Count 3.72 mil/mm3 (4.50-5.90); White Blood Count 5.3 th/mm3 (4.0-11.0)
[2018-07-24 07:02] LABS: INR 1.1 Ratio
[2018-07-24 07:04] LABS: Chloride 106 meq/L (98-107); Sodium 140 meq/L (136-145)
[2018-07-24 07:09] LABS: Anion Gap 9 meq/L (5-15); Calcium 8.2 mg/dL (8.5-10.1); Carbon Dioxide 24.9 meq/L (21.0-32.0); Glucose,Random 74 mg/dL (74-106)
[2018-07-24 07:10] LABS: Blood Urea Nitrogen 13 mg/dL (7-18)
[2018-07-24 07:13] LABS: Glomerular Filtration Rate Greater Than 89 mL/min (>89)
[2018-07-24 07:28] LABS: Creatine Kinase 2153 U/L (39-308)
[2018-07-24 07:48] LABS: CKMB Percent 0.4 % (0.0-4.0); Creatine Kinase MB 8.1 ng/mL (0.5-3.6)
--- NOTE | 2018-07-24 09:34 | P.PNIM ---
Subjective Interval history: Patient seen and evaluated this morning at bedside. Patient denies headache, blurry vision, hearing changes, palpitations, chest pain, shortness of breath, nausea, vomiting, diarrhea, tactile or auditory hallucinations, diarrhea, or acute complaints. Patient denies feeling weak this morning he says he had a good night overnight. EMR reviewed and patient did not receive any oxycodone overnight Physical Exam Vital signs: Last Vital Signs Temp 98.2 F 07/24/18 08:00 Pulse 74 07/24/18 08:00 Resp 21 07/24/18 08:00 BP 138/68 07/24/18 08:00 Pulse Ox 95 07/24/18 08:00 Intake & Output 07/22/18 07/23/18 07/24/18 07/25/18 06:59 06:59 06:59 06:59 Intake Total 1060 / 1060 240 / 240 Output Total 500 / 500 200 / 200 Balance 560 / 560 40 / 40 Weight 108.4 kg HEENT: EOMI, PERRLA Cardiovascular: S1/S2. Systolic murmur Respiratory: Clear to auscultation anteriorly and posteriorly Gastrointestinal: Soft, nontender, nontender, no guarding or rebound appreciated. Neurology: Power 4/5 left upper and lower extremity, power 5/5 right upper and lower extremity, sensation intact bilaterally upper and lower extremity, no facial droop, no slurred speech. Extremity 2+ radial pulse upper chimney, no lower extremity edema, no calf tenderness Results Labs CBC & Chem 7: 07/24/18 05:45 07/24/18 05:45 Imaging Imaging: Impressions Chest X-Ray 07/23/18 09:54 CONCLUSION: No acute disease Elbow X-Ray 07/23/18 09:54 CONCLUSION: No evidence of recent bony injury. Elbow X-Ray 07/23/18 09:54 CONCLUSION: No acute fracture of the left elbow identified. Head CT 07/23/18 09:54 CONCLUSION: No acute intracranial injury . Knee X-Ray 07/23/18 09:54 CONCLUSION: No acute bony injury Knee X-Ray 07/23/18 09:54 CONCLUSION: Post arthroplasty. No acute fracture. Pelvis X-Ray 07/23/18 09:54 CONCLUSION: No acute bony findings Wrist X-Ray 07/23/18 09:54 CONCLUSION: 1. Healing fracture at the base of the fifth metacarpal. There is exuberant bony callus and degenerative changes. 2. Advanced arthritic changes in the carpometacarpal joint at the base of the thumb. 3. No acute abnormality seen Assessment and Plan (1) Fall (on) (from) other stairs and steps, initial encounter: Code(s): W10.8XXA - Fall (on) (from) other stairs and steps, initial encounter Status: Acute (2) Substance addiction: Code(s): F19.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, uncomplicated Status: Acute (3) Chronic knee pain after total replacement of both knee joints: Code(s): M25.561 - Pain in right knee; M25.562 - Pain in left knee; G89.29 - Other chronic pain; Z96.653 - Presence of artificial knee joint, bilateral Status: Acute (4) Hypertension: Code(s): I10 - Essential (primary) hypertension Status: Acute (5) High cholesterol: Code(s): E78.00 - Pure hypercholesterolemia, unspecified Status: Acute (6) Depression: Code(s): F32.9 - Major depressive disorder, single episode, unspecified Status: Acute (7) Anxiety: Code(s): F41.9 - Anxiety disorder, unspecified Status: Acute Plan Muscular skeletal/orthopedic: Fall, history of bilateral knee replacement Extensive imaging obtained. No evidence of acute fracture at this time. Physical therapy evaluation completed. -Ibuprofen 600 mg twice daily as needed for pain, oxycodone 5 mg twice daily as needed breakthrough Psychiatry: Substance misuse of opioids, anxiety, depression, chronic pain, mood disorder Family concerned that patient has been misusing his prescription for opioid medication which is resulting in oversedation and falls. Continue venlafaxine 75 mg p.o. 3 times daily Continue lamotrigine 200 mg twice daily Continue Ativan 2 mg twice daily for anxiety - Trazadone 100mg qHS due to low risk for abuse in patients with substance abuse concerns. - medication confirmation recieved from [facility] outpatient. Collected - risperdal 2mg qD and HOLDING risperdal 4mgQHS written for sleep disturbance as per patient/family. use trazadone. Nephrology: Rhabdomyolysis Continue aggressive IV fluid hydration. Normal saline 150cc/hr A.m. CPK level Cardiology: Hypertension, hyperlipidemia Continue lisinopril 5 mg daily 2D echo to evaluate for valvular pathology leading to fall Telemetry monitoring CODE STATUS: Full code DVT prophylaxis Diet: Cardiac Disposition: Medical service Progress Note: Quality VTE Deep Vein Thrombosis/Pulmonary Embolism Present on Admission: No
[2018-07-24] MEDS: Senna/Docusate Sodium 8.6/50 MG Tablet PO SCH ×2 (10:14→22:24)
[2018-07-24] MEDS: Lisinopril 5 MG Tablet PO SCH (10:14)
[2018-07-24] MEDS: lamoTRIgine 100 MG Tablet PO SCH ×2 (10:15→22:24)
[2018-07-24] MEDS: Venlafaxine XR 75 MG Capsule PO SCH (10:15)
--- NOTE | 2018-07-24 10:42 | ECHRPT ---
Indication: SYNCOPE CONCLUSIONS Normal left ventricular size. Moderately dilated left ventricle. Wall thickness is measured at the u pper limits of normal. The left ventricular systolic function is normal with an estimated ejection fraction in t he range of 60-65%. No definite regional wall motion abnormalities are present. [id number] mitral valve regurgitation. Aortic valve sclerosis is present. The aortic valve is not well visualized. A mean transvalvular aor tic gradient of 31 mm Hg suggests possible moderate aortic stenosis. BP: / HR: Rhythm: Sinus MEASUREMENTS (Male / Female) Normal Values Technical Quality:Very technically difficult study DOPPLER AV Peak Velocity 368.0 cm/s AV Peak Gradient 54.2 mmHg AV Mean Gradient 31.0 mmHg AV Velocity Time Integral 79.4 cm LVOT Peak Velocity 97.8 cm/s LVOT Peak Gradient 3.8 mmHg LVOT Velocity Time Integral 21.5 cm Mitral E Point Velocity 93.3 cm/s Mitral A Point Velocity 102.0 cm/s Mitral E to A Ratio 0.9 LV E' Lateral Velocity 9.3 cm/s Mitral E to LV E' Lateral Ratio 10.1 LV E' Septal Velocity 5.9 cm/s Mitral E to LV E' Septal Ratio 15.9 FINDINGS LEFT VENTRICLE Normal left ventricular size. Moderately dilated left ventricle. Wall thickness is measured at the u pper limits of normal. The left ventricular systolic function is normal with an estimated ejection fraction in t he range of 60-65%. No definite regional wall motion abnormalities are present. RIGHT VENTRICLE Normal right ventricular size and systolic function. LEFT ATRIUM The left atrial size is normal. RIGHT ATRIUM The right atrial size is normal. ATRIAL SEPTUM No atrial level shunt is demonstrated by color flow Doppler interrogation. AORTA The aortic root and proximal ascending aorta are not well visualized. MITRAL VALVE [id number] mitral valve regurgitation. AORTIC VALVE Aortic valve sclerosis is present. The aortic valve is not well visualized. A mean transvalvular aor tic gradient of 31 mm Hg suggests possible moderate aortic stenosis. TRICUSPID VALVE Structurally normal tricuspid valve. No tricuspid valve stenosis or regurgitation. PULMONARY VALVE The pulmonary valve is not well visualized. VESSELS The inferior vena cava was not well visualized. PERICARDIUM No pericardial effusion. Onesimo Hernandez MD (Electronically Signed) Final Date:24 July 2018 10:41
--- NOTE | 2018-07-24 12:15 | ECG ---
Date Performed: 07/23/2018 Time Performed: 14:28:02 PTAGE: 83 years EKG: Sinus rhythm NONSPECIFIC T-WAVE ABNORMALITY BORDERLINE ECG Since the PREVIOUS TRACING , no significant change noted PREVIOUS TRACIN07/19/2018 07.38 DOCTOR: Hua Zelaya Interpretating Date/Time 07/24/2018 12:13:38
[2018-07-24] MEDS: Enoxaparin Inj 40 MG/0.4 ML Syringe SQ SCH (18:52)
[2018-07-25 06:08] LABS: Hematocrit 34.6 % (39.0-51.0); Mean Corpuscular HGB Conc 31.9 % (32.0-36.0); Mean Corpuscular Hemoglobin 30.7 pg (27.0-34.0); Mean Corpuscular Volume 96.4 fL (80.0-100.0); Mean Platelet Volume 7.4 fL (7.0-11.0); Platelet Count 284 th/mm3 (150-450); Red Blood Count 3.59 mil/mm3 (4.50-5.90); Red Cell Distribution Width 12.7 % (11.6-17.2)
[2018-07-25 06:14] LABS: Chloride 108 meq/L (98-107); Potassium 3.7 meq/L (3.5-5.1); Sodium 142 meq/L (136-145)
[2018-07-25 06:17] LABS: Anion Gap 9 meq/L (5-15); Blood Urea Nitrogen 10 mg/dL (7-18); Carbon Dioxide 25.2 meq/L (21.0-32.0); Glucose,Random 76 mg/dL (74-106)
[2018-07-25] MEDS: Sod Chloride 0.9% Inj 1,000 ML IV.CONT SCH ×3 (06:18→16:18)
[2018-07-25 06:20] LABS: Glomerular Filtration Rate Greater Than 89 mL/min (>89)
[2018-07-25 06:23] LABS: Creatine Kinase 981 U/L (39-308)
[2018-07-25 06:40] LABS: CKMB Percent 0.4 % (0.0-4.0); Creatine Kinase MB 3.9 ng/mL (0.5-3.6)
[2018-07-25] MEDS: lamoTRIgine 100 MG Tablet PO SCH ×2 (09:47→21:52)
[2018-07-25] MEDS: Venlafaxine XR 75 MG Capsule PO SCH (09:47)
[2018-07-25] MEDS: Senna/Docusate Sodium 8.6/50 MG Tablet PO SCH ×2 (09:48→21:52)
[2018-07-25] MEDS: Lisinopril 5 MG Tablet PO SCH (09:50)
--- NOTE | 2018-07-25 15:28 | P.PNIM ---
Subjective Interval history: No acute events (XIMENA) overnight No palpitations PT note reviewed Case discussed with CM and plan for SNF approval and transfer within 24hrs No complaints by patient. was able to ambulate but has some deficits with knee since injuries and knee replacements in past denied dizziness, headache, new back pain, new falls Physical Exam Vital signs: Last Vital Signs Temp 98.7 F 07/25/18 12:00 Pulse 76 07/25/18 12:00 Resp 18 07/25/18 04:00 BP 152/68 H 07/25/18 12:00 Pulse Ox 96 07/25/18 12:00 Intake & Output 07/23/18 07/24/18 07/25/18 07/26/18 06:59 06:59 06:59 06:59 Intake Total 1060 / 1060 2100 / 2100 240 / 240 Output Total 500 / 500 1000 / 1000 400 / 400 Balance 560 / 560 1100 / 1100 -160 / -160 Weight 108.4 kg 109.7 kg Results Labs CBC & Chem 7: 07/25/18 05:15 07/25/18 05:15 Assessment and Plan (1) Fall (on) (from) other stairs and steps, initial encounter: Code(s): W10.8XXA - Fall (on) (from) other stairs and steps, initial encounter Status: Acute (2) Substance addiction: Code(s): F19.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, uncomplicated Status: Acute (3) Chronic knee pain after total replacement of both knee joints: Code(s): M25.561 - Pain in right knee; M25.562 - Pain in left knee; G89.29 - Other chronic pain; Z96.653 - Presence of artificial knee joint, bilateral Status: Acute (4) Hypertension: Code(s): I10 - Essential (primary) hypertension Status: Acute (5) High cholesterol: Code(s): E78.00 - Pure hypercholesterolemia, unspecified Status: Acute (6) Depression: Code(s): F32.9 - Major depressive disorder, single episode, unspecified Status: Acute (7) Anxiety: Code(s): F41.9 - Anxiety disorder, unspecified Status: Acute Plan Muscular skeletal/orthopedic: Fall, history of bilateral knee replacement Extensive imaging obtained. No evidence of acute fracture at this time. Physical therapy evaluation completed 07/25 -Ibuprofen 600 mg twice daily as needed for pain, oxycodone 5 mg twice daily as needed breakthrough Psychiatry: Substance misuse of opioids, anxiety, depression, chronic pain, mood disorder Family concerned that patient has been misusing his prescription for opioid medication which is resulting in oversedation and falls. Continue venlafaxine 75 mg p.o. 3 times daily Continue lamotrigine 200 mg twice daily Continue Ativan 2 mg twice daily for anxiety - Trazadone 100mg qHS due to low risk for abuse in patients with substance abuse concerns. - medication confirmation recieved from [facility] outpatient. Collected - risperdal 2mg qD and HOLDING risperdal 4mgQHS written for sleep disturbance as per patient/family. use trazadone. Nephrology: Rhabdomyolysis Continue aggressive IV fluid hydration. Normal saline 150cc/hr --> CPK downtrending currently. A.m. CPK level Cardiology: Hypertension, hyperlipidemia Continue lisinopril 5 mg daily 2D echo: The left ventricular systolic function is normal with an estimated ejection fraction in the range of 60-65%. No definite regional wall motion abnormalities are present Telemetry monitoring - No new tele events overnight and thus far into afternoon. CODE STATUS: Full code DVT prophylaxis Diet: Cardiac Disposition: Medical service Echo repeat in 1 year to monitor mod A.S Progress Note: Quality VTE Deep Vein Thrombosis/Pulmonary Embolism Present on Admission: No
[2018-07-25] MEDS: Enoxaparin Inj 40 MG/0.4 ML Syringe SQ SCH (17:17)
[2018-07-26] MEDS: traZODone 100 MG Tablet PO PRN (02:08)
[2018-07-26] MEDS: Sod Chloride 0.9% Inj 1,000 ML IV.CONT SCH ×3 (04:51→14:15)
--- NOTE | 2018-07-26 09:03 | P.DS ---
DS: Providers Date of admission: 07/23/18 16:51 Primary care physician: Shara Adler MD Consults: 07/25/18 12:24 HUB Only Consult Order Routine Consulting Provider: Mina Garibay Reason for Consultation: REVIEW FOR ADMISSION FOR TOMORROW. JUSTIN HONG DS: Diagnosis Discharge Diagnosis (1) Fall (on) (from) other stairs and steps, initial encounter: Status: Acute (2) Substance addiction: Status: Acute (3) Chronic knee pain after total replacement of both knee joints: Status: Acute (4) Hypertension: Status: Acute (5) High cholesterol: Status: Acute (6) Depression: Status: Acute (7) Anxiety: Status: Acute DS: Summary Patient is a pleasant 83-year-old male with past medical history of chronic knee pain status post bilateral knee replacements who presented to the emergency department after mechanical fall at home. History obtained in part from family present at the bedside during evaluation. As per family patient has been having recurring falls over the last few weeks and months which have required him to occasionally present to the hospital for evaluation. As per family patient has been prescribed pain medication which they believe he has been taking on his own outside of how it was prescribed which may result in him having increased falls. Patient at the time denied this claim. Patient was admitted to hospital with the following treatments and services were provided. X-ray imaging negative for fracture. Telemetry monitoring negative for evidence of arrhythmia. CT head negative. Echo obtained did not show evidence of severe aortic stenosis or other significant regurgitation to explain fall. Patient denied chest pain, palpitations, diaphoresis, dizziness, or lightheadedness prior to episodes of fall and says that he tripped over his feet and fell forward. While hospitalized patient was prescribed pain medication using Tylenol initially with breakthrough pain medication of 5 mg oxycodone as needed and a lower dose twice daily. Patient also reports using Risperdal for sleep. Patient was transitioned to trazodone 100 mg at bedtime for insomnia. Trazodone has low potential for abuse in patients at risk. Patient is clinically improved and stable for discharge to rehab facility. Patient to follow-up with primary medical doctor. Time Spent with Patient Total time spent providing and/or coordinating discharge services: > 45 minutes Patient is a pleasant 83-year-old male with past medical history of chronic knee pain status post bilateral knee replacements who presented to the emergency department after mechanical fall at home. History obtained in part from family present at the bedside during evaluation. As per family patient has been having recurring falls over the last few weeks and months which have required him to occasionally present to the hospital for evaluation. As per family patient has been prescribed pain medication which they believe he has been taking on his own outside of how it was prescribed which may result in him having increased falls. Patient at the time denied this claim. Patient was admitted to hospital with the following treatments and services were provided. X-ray imaging negative for fracture. Telemetry monitoring negative for evidence of arrhythmia. CT head negative. Echo obtained did not show evidence of severe aortic stenosis or other significant regurgitation to explain fall. Patient denied chest pain, palpitations, diaphoresis, dizziness, or lightheadedness prior to episodes of fall and says that he tripped over his feet and fell forward. While hospitalized patient was prescribed pain medication using Tylenol initially with breakthrough pain medication of 5 mg oxycodone as needed and a lower dose twice daily. Patient also reports using Risperdal for sleep. Patient was transitioned to trazodone 100 mg at bedtime for insomnia. Trazodone has low potential for abuse in patients at risk. Patient is clinically improved and stable for discharge to rehab facility. Patient to follow-up with primary medical doctor. Quality: VTE Deep Vein Thrombosis/Pulmonary Embolism Present on Admission: No Exam Narrative Exam Narrative: General: No acute distress, conversational Cardia vascular: S1/S2 Respiratory: Clear to auscultation anteriorly posteriorly without wheezing, rales, or rhonchi. No intercostal muscle use Gastrointestinal: Soft, nontender, non-distended, no guarding or rebound Extremity: No lower extremity edema or calf tenderness Neurology: No facial droop, no slurred speech, sensation intact upper and lower extremity. Power 5 voicebox/5 throughout Orthopedics: Stiffness in knee particularly left knee. Results Labs on day of discharge: Labs from last 24 hours 07/26/18 07:36 Total Creatine Kinase Pending Impressions ITS Impressions Chest X-Ray 07/23/18 09:54 CONCLUSION: No acute disease Elbow X-Ray 07/23/18 09:54 CONCLUSION: No acute fracture of the left elbow identified. Head CT 07/23/18 09:54 CONCLUSION: No acute intracranial injury . Knee X-Ray 07/23/18 09:54 CONCLUSION: Post arthroplasty. No acute fracture. Pelvis X-Ray 07/23/18 09:54 CONCLUSION: No acute bony findings Wrist X-Ray 07/23/18 09:54 CONCLUSION: 1. Healing fracture at the base of the fifth metacarpal. There is exuberant bony callus and degenerative changes. 2. Advanced arthritic changes in the carpometacarpal joint at the base of the thumb. 3. No acute abnormality seen Discharge Plan Discharge Disposition Patient Disposition: [facility] Rehab Inpatient Discharge Condition Condition: Good Discharge Order Discharge Orders: Discharge Order (Routine); Ordered 07/26/18 Ordered By: Sylvain Carreon Discharge Details Anticipated Discharge Date: 07/26/18 Physicians Team Primary Care Provider: Shara Adler Attending Provider: Sylvain Carreon Other Providers: Mina Garibay Rxs /Orders / Referrals /Forms Prescriptions: New trazodone 100 mg Tablet 100 mg PO HS PRN (Reason: Insomnia) 7 Days Qty: 7 RF: 0 Continue lamotrigine 200 mg Tablet 200 mg PO DAILY RF: 0 venlafaxine 75 mg Tablet 75 mg PO TID RF: 0 risperidone 3 mg Tablet 2 mg PO DAILY RF: 0 lorazepam 2 mg Tablet 2 mg PO TID RF: 0 simvastatin 20 mg Tablet 40 mg PO HS RF: 0 testosterone cypionate 200 mg/mL Oil 200 mg IM Q2W RF: 0 lisinopril 2.5 mg Tablet 5 mg PO DAILY RF: 0 oxycodone 5 mg Tablet 5 mg PO BID RF: 0 selenium sulfide 2.3 % Shampoo 1 applic TOPICAL DAILY RF: 0 Discontinued risperidone 4 mg Tablet 4 mg PO HS RF: 0 Referrals: Shara Adler MD [Primary Care Provider] - See Instructions Discharge Instructions Additional Instructions: Patient should discuss alternative options for pain control with emphasis on consideration of limited opoid medication use. Status ED Status: Left Department Discharge Information Discharge Date/Time: 07/26/18 12:52
[2018-07-26] MEDS: Venlafaxine XR 75 MG Capsule PO SCH (09:11)
[2018-07-26] MEDS: lamoTRIgine 100 MG Tablet PO SCH (09:12)
[2018-07-26] MEDS: Lisinopril 5 MG Tablet PO SCH (09:12)
[2018-07-26] MEDS: Senna/Docusate Sodium 8.6/50 MG Tablet PO SCH (09:13)
[2018-07-26 09:20] LABS: CKMB Percent 0.5 % (0.0-4.0)
== END 2018-07-26 12:52 ==
LOC: PHEFT 09:26 → PHEDA 09:26 → PH3 17:23
PROVIDERS: ADMIT Internal Medicine; ATTEND Internal Medicine
DX: W01.0XXA Fall on same level from slipping, tripping and stumbling without subsequent striking against object, initial encounter; Z96.653 Presence of artificial knee joint, bilateral; S50.812A Abrasion of left forearm, initial encounter; E78.00 Pure hypercholesterolemia, unspecified; S80.01XA Contusion of right knee, initial encounter; G47.00 Insomnia, unspecified; I10 Essential (primary) hypertension; R01.1 Cardiac murmur, unspecified; F32.9 Major depressive disorder, single episode, unspecified; F41.9 Anxiety disorder, unspecified; F11.20 Opioid dependence, uncomplicated; Y92.019 Unspecified place in single-family (private) house as the place of occurrence of the external cause; Z87.891 Personal history of nicotine dependence; M62.82 Rhabdomyolysis; E78.5 Hyperlipidemia, unspecified; S50.811A Abrasion of right forearm, initial encounter; S80.02XA Contusion of left knee, initial encounter; R29.6 Repeated falls